=== PATIENT | female | born 1990 | race Caucasian/White ===

== ENCOUNTER 2019-07-04 14:10 | Emergency (ER) | payer BC, OTHER ==
[~2019-07-04] VITALS: Ht 165.1 cm; Wt 100.0 kg
--- NOTE | 2019-07-04 14:26 | NUR ---
THIS IS A 28 YO F W/ C/O LT HIP PAIN 12/12 AFTER FALLING LAST NIGHT. SHE STATES WHEN SHE WOKE UP THIS MORNING IT WAS OUT OF PLACE AND HER BF "POPPED HIP BACK IN PLACE". PT HAS NUMBNESS IN LT FOOT AND PAIN IN BACK. PT IS RESTING ON DAYANARA Lopez/ AT BEDSIDE FOR EVAL. CALL LIGHT IN REACH. AWAITING ORDERS.
[2019-07-04] MEDS ORDERED: ACETAMINOPHEN 500 MG TABLET PO ONE (14:30)
--- NOTE | 2019-07-04 14:34 | NUR ---
PT TO RAD.
[2019-07-04] MEDS ORDERED: ACETAMINOPHEN 500 MG TABLET ONE (14:45)
--- NOTE | 2019-07-04 14:50 | NUR ---
PT MEDICATED PER EMAR. REPORTING NAUSEA FROM PAIN, GIVEN EMESIS BAG. WILL ASK FOR NAUSEA MEDS.
[2019-07-04] MEDS ORDERED: ONDANSETRON ODT 4 MG ONE (14:53)
--- NOTE | 2019-07-04 14:59 | NUR ---
PT WHEELED TO BR TO PROVIDE URINE SAMPLE.
[2019-07-04] MEDS ORDERED: ONDANSETRON ODT 4 MG PO ONE (15:00)
[2019-07-04] MEDS ORDERED: KETOROLAC 60 MG/2 ML ONE (15:10)
[2019-07-04 15:15] VITALS: BP 156/95
[2019-07-04 15:18] LABS: HCG UR SG 1.023 (1.003-1.030)
[2019-07-04] MEDS ORDERED: KETOROLAC 30 MG/1 ML IM ONE (15:30)
--- NOTE | 2019-07-04 15:40 | NUR ---
PT PROVIDED WATER.
--- NOTE | 2019-07-04 15:48 | NUR ---
PT REPORTS PAIN 6/10 AFTER TORADOL. WAS 8/10.
--- NOTE | 2019-07-04 15:53 | NUR ---
PT TRANSPORTED TO CT.
--- NOTE | 2019-07-04 16:38 | NUR ---
IN SPEAKING W/ PT REGARDING RESULTS.
--- NOTE | 2019-07-04 16:47 | NUR ---
PT CHANGED INTO CLOTHES. AWAITING DC PAPERWORK.
--- NOTE | 2019-07-04 17:02 | NUR ---
Patient given discharge instructions and they have confirmed that they understand the instructions. Patient wheeled to dc desk in wheelchair.
== END 2019-07-04 17:04 | disposition home or self-care (01) ==
LOC: ED 15:10
DX: S73.122A Ischiocapsular ligament sprain of left hip, initial encounter (principal); W01.0XXA Fall on same level from slipping, tripping and stumbling without subsequent striking against object, initial encounter; Y93.89 Activity, other specified; Y92.89 Other specified places as the place of occurrence of the external cause; Y99.8 Other external cause status
CPT/HCPCS: 72131; 72192; 73502; 81025; 96372; 99285; J1885; Q0162